=== PATIENT | female | born 1945 | race Caucasian/White ===

== ENCOUNTER 2019-07-31 20:36 | Inpatient (IN) | payer OTHER ==
[~2019-07-31] VITALS: Ht 165.1 cm; Wt 40.4 kg
--- NOTE | ~2019-07-31 | EMS ---
[address] [address] EMS Patient Care Report Name: RADHA DE OLIVEIRA Room #: REG LEDY Marks#: [id number] Admission: 07/31/19 Attend Phys: Discharge: Date of : 41 Report #: [id number] THIS REPORT FOR: //name// Report Transmitted: 07/31/2019 20:21 EMS Care Summary [facility] MED-ACT Incident [id number] @ 07/31/2019 20:11 Incident Location [address] [place] [address] Patient RADHA DE OLIVEIRA Female, 74 Years 1945 Patient Address [address] [place] [address] Patient History Behavioral/Psychiatric Disorder,Diabetes,Coronary Artery Disease (CAD), Patient Allergies No known allergies, Patient Medications Atrovent, Clopidogrel, Albuterol, Sertraline, Tylenol, Metformin, Chief Complaint Productive Cough Disposition Transported No Lights/Holden Dispatch Reason Breathing Problem Transported To [facility] Narrative [id number] arrived on scene to find the patient sitting in a chair in no apparent distress. Staff advised that the patient has had a productive cough over the [address] [address] EMS Patient Care Report Name: RADHA DE OLIVEIRA Room #: REG LEDY Marks#: [id number] Admission: 07/31/19 Attend Phys: Discharge: Date of : 41 Report #: [id number] past several days which they had imaging performed which did not show anything. They advised that the patient is now tachycardic and are sending her out for further evaluation. Patient advised that her only complaint is the cough which she has have for a few days and denied having any respiratory distress. Patient had no other complaints to EMS. Initial Vitals @20:25P: 142,R: 20,BP: 123/66,Pain: 0/10,GCS: 15,Temp: 97.4F,SpO2: 98,Revised Trauma: 12, @20:17P: 130,R: 20,BP: 118/66,Pain: 0/10,GCS: 15,SpO2: 95,Revised Trauma: 12, Assessments @20:18MENTAL:Person Oriented,Time Oriented,Place Oriented,Event Oriented,SKIN:HEENT:Head/Face: No Abnormalities,Eyes: No Abnormalities,LUNG SOUNDS:General: No Abnormalities,Left Upper: No Abnormalities,Right Upper: No Abnormalities,Left Lower: No Abnormalities,Right Lower: No Abnormalities,ABDOMEN:General: No Abnormalities,Left Upper: No Abnormalities,Right Upper: No Abnormalities,Left Lower: No Abnormalities,Right Lower: No Abnormalities,PELVIS//GI:No Abnormalities,EXTREMITIES:Left Arm: No Abnormalities,Right Arm: No Abnormalities,Left Leg: No Abnormalities,Right Leg: No Abnormalities,PULSE:NEURO:No Abnormalities, Impression Shortness of breath Procedures @20:18ALS AssessmentResponse: UnchangedSucceeded Timeline 20:10,Call Received 20:10,Psap Call 20:11,Dispatched 20:11,En Route 20:15,On Scene 20:17,At Patient 20:17,BP: 118/66 M,PULSE: 130,RR: 20 R,SPO2: 95 Ox,ETCO2: ,BG: ,PAIN: 0,GCS: 15, 20:18,ALS Assessment,Response: UnchangedSucceeded, 20:25,BP: 123/66 M,PULSE: 142,RR: 20 R,SPO2: 98 Ox,ETCO2: ,BG: ,PAIN: 0,GCS: 15, 20:27,Depart Scene 20:33,At Destination 20:49,Call Closed Disclaimer v1.1 Copyright 2019 [employer] [facility] [address] [place] [address] EMS Patient Care Report Name: RADHA DE OLIVEIRA Room #: REG [facility].#: [id number] Admission: 07/31/19 Attend Phys: Discharge: Date of : 41 Report #: [id number] This EMS Care Summary contains data elements from the applicable legal record (which may be displayed differently). It is designed to provide pertinent information for the following purposes: continuity of care, clinical quality, and state data reporting. The complete legal record is available to ED staff and administrators of the receiving hospital in [employer] Patient Tracker. All data is provided "as is."
[2019-07-31 20:38] VITALS: BP 128/68
[2019-07-31] MEDS ORDERED: GLUCERNA237 M1 PO (20:46)
[2019-07-31] MEDS ORDERED: PLAVIX 75 MG TA75 M1 PO (20:46)
[2019-07-31] MEDS ORDERED: IPRAT-ALBUT 0.5-3 ML INH (20:48)
[2019-07-31] MEDS ORDERED: METFORMIN HCL500 MG PO (20:48)
[2019-07-31] MEDS ORDERED: TYLENOL325 MG PO (20:49)
[2019-07-31] MEDS ORDERED: PROTONIX40 M2 PO (20:49)
[2019-07-31] MEDS ORDERED: ZOLOFT50 MG PO (20:49)
[2019-07-31 21:29] LABS: ABSOLUTE NEUTROPHILS 3.9 thou/uL (1.4-8.2); BASOPHILS 0.3 % (0.0-2.0); EOSINOPHILS 1.4 % (0.0-3.0); HEMATOCRIT 36.2 % (37.0-47.0); HEMOGLOBIN 11.5 gm/dL (12.0-15.0); LYMPHOCYTES 11.9 % (24.0-44.0); MCH 27.7 pg (26.0-34.0); MCHC 31.7 g/dL (28.0-37.0); MCV 87.4 fL (80.0-100.0); MONOCYTES 7.4 % (1.0-8.0); PLATELET COUNT 342 thou/uL (150-400); RBC 4.15 mil/uL (4.20-5.00); RDW 15.4 % (10.5-14.5)
[2019-07-31 21:36] LABS: ANION GAP 10 mmol/L (7-16); BUN 34 mg/dL (7-18); CALCIUM 9.5 mg/dL (8.5-10.1); CHLORIDE 98 mmol/L (98-107); CO2 30 mmol/L (21-32); CREATININE 1.3 mg/dL (0.6-1.0); GLUCOSE 125 mg/dL (74-106); POTASSIUM 4.5 mmol/L (3.5-5.1); SODIUM 138 mmol/L (136-145)
[2019-07-31 21:45] LABS: ALBUMIN 3.5 g/dL (3.4-5.0); SGOT 15 U/L (15-37); SGPT 10 U/L (30-65); TOTAL BILIRUBIN 0.2 mg/dL (<0.1-1.0); TOTAL PROTEIN 7.4 g/dL (6.4-8.2); TROPONIN-I <0.06 ng/mL (<0.06)
[2019-08-01] VITALS (7 sets, daily range): BP systolic 93–137; BP diastolic 48–78
[2019-08-01 00:41] LABS: URINE BILIRUBIN NEGATIVE (Negative); URINE BLOOD NEGATIVE (Negative); URINE CLARITY CLEAR; URINE COLOR YELLOW; URINE GLUCOSE-RANDOM* NEGATIVE (Negative); URINE KETONES NEGATIVE (Negative); URINE LEUKOCYTES-REFLEX TRACE (Negative); URINE NITRITE-REFLEX NEGATIVE (Negative); URINE PROTEIN (DIPSTICK) NEGATIVE (Negative); URINE UROBILINOGEN 0.2 E.U./dl (0.2-1.0)
--- NOTE | 2019-08-01 04:34 | NUR ---
PT. ARRIVED AT FLOOR AROUND 0200; PT. ALERT; ABLE TO AMBULATE FROM WHEELCHAIR TO BED WITH ONE PERSON ASSISTANCE; DURING ASSESSMENT PT. 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 ABLE TO USE THE BED SIDE COMMODE; INCONTINENT AT TIMES; ABLE TO REST AFTER 0300; FALL PRECAUTIONS ON PLACE; NURSE CLOSE TO ROOM; MONITORING; AROUND 0420 PT'S HR BELOW 100s; NO C/O PAIN; ASSESSMENT CHARGED; FOLLOWING POC; WILL PASS ON REPORT;
[2019-08-01 04:50] LABS: CALCIUM 8.9 mg/dL (8.5-10.1); CREATININE 1.3 mg/dL (0.6-1.0); POTASSIUM 4.2 mmol/L (3.5-5.1)
--- NOTE | 2019-08-01 15:11 | EKG ---
[address] [address] ELECTROCARDIOGRAM REPORT Name: MATTRADHA YARBROUGH Room #: 204-P ADM IN M.R.#: [id number] Admission: 08/01/19 Attend Phys: Errol Kemp MD Discharge: Date of : 41 Report #: [id number] THIS REPORT FOR: //name// [facility] ED Test Date: 2019-07-31 Test Time: 21:37:24 Pat Name: RADHA DE OLIVEIRA Department: Room: 204 Gender: F Religious Healer: DENISSE : 1945 Requested By: Tahmina Cuello Order Number: [id number] MD: Micheal Jarvis Measurements Intervals Butler Rate: 144 P: 15 NH: 121 QRS: 17 QRSD: 99 T: 181 QT: 289 QTc: 448 Interpretive Statements Sinus tachycardia Nonspecific T abnormalities, lateral leads No previous ECG available for comparison Electronically Signed On 08-01-2019 15:11:41 CDT by Micheal Jarvis [email or web address] <ELECTRONICALLY SIGNED> By: Micheal Jarvis MD 08/01/19 1511 36 Micheal Jarvis MD /SHILA
--- NOTE | 2019-08-01 16:49 | NUR ---
ASSESSMENT CHARTED. PT ALERT AND ORIENTED TO SELF. NEW ORDERS NOTED. FALL PRECAUTION IN PLACE. CHECKED FREQUENTLY AND NEEDS MET. FAMILY UPDATED ON PT'S PROGRESS. WILL CONTINUE TO MONITOR.
--- NOTE | 2019-08-01 16:58 | NUR ---
Case opened to follow for dc planning. Pt's DIL/dpoa Rut here earlier today. The pt is from [facility] memory care at [facility]. She is here with recurrent aspiration pneumonia. Dtr in law reports she is up with assist and a rwalker. They provide med mngt, meals, adl support and supervision. Dc plan is to return to the memory care unit at pr. Their clinical mngr will come by Sunday to assess her for readmission. Update called to [place] [facility]. She has confirmed onsite with their clinical manager hris. Will ask for therapy evals.
--- NOTE | 2019-08-01 17:14 | NUR ---
PT RESIDES AT [facility] FAXED H/P TO FACILITY AND RECEIVED CONFIRMATION. DCP TO FOLLOW.
[2019-08-02 04:26] VITALS: BP 144/64
[2019-08-02 04:46] LABS: HEMATOCRIT 32.6 % (37.0-47.0); HEMOGLOBIN 10.7 gm/dL (12.0-15.0); MCH 28.3 pg (26.0-34.0); MCHC 32.7 g/dL (28.0-37.0); MCV 86.5 fL (80.0-100.0); RBC 3.77 mil/uL (4.20-5.00); RDW 15.6 % (10.5-14.5); WBC 5.6 thou/uL (4.0-11.0)
--- NOTE | 2019-08-02 05:04 | NUR ---
ASSESSMENT DOCUMENTED.PT BEEN RESTING IN NO ACUTE DISTRESS.A/OX1,FORGETFUL,FOLLOWS SIMPLE COMMANDS.VSS.PT BEEN SLEEPING MOST OF THE NOC.TYLENOL WAS GIVEN FOR HEADACHE WITH COMPLETE RELIEF.IV ANTIBIOTICS INFUSED PER ORDERS,TOLERATED.UP W/ASSIST TO BSC.POC IS TO CONT TO WITH CURRENT TX.
[2019-08-02 07:30] VITALS: BP 140/82
[2019-08-02 11:30] VITALS: BP 95/54
[2019-08-02 16:00] VITALS: BP 129/66
--- NOTE | 2019-08-02 16:09 | NUR ---
ASSUMED CARE OF PATIENT AT 0700. PATIENT IS ALERT TO SELF. PATIENT IS CONFUSED AT TIMES AND RESTLESS. WE TOOK MULTIPLE WALKS AROUND THE UNIT AND SHE SAT WITH THE SPA MANAGER FOR A FEW HOURS IN THE AFTERNOON TO PREVENT HER FROM "TRYING TO GET UP" ON HER OWN. HER BLOOD SUGAR IS BEING CHECK AC&HS AND COVERED WITH INSULIN. ASSESSMENTS CHARTED. PATIENT WORKED WITH PT AND OT. PATIENT HAS AN INTERMITTENT NONPRODUCTIVE COUGH. PATIENT TO CONTINUE WITH POC.
[2019-08-02 20:02] VITALS: BP 149/70
--- NOTE | 2019-08-02 22:26 | NUR ---
ASSUMED CARE FROM DAY SHIFT PT CONFUSED TO SURROUNDING AND SITUATION, PT PULLED 2 IV S OUT WITHIN 2 HOURS , ARMS WERE WRAP WEL TO CONCEL BUT PT MANAGE TO PULLOUT AND ATEMPT TO GET OUT OF BED, LYSSA CHECK MADE. ANGLESMITH CALLED ORDER RECIEVED FOR MITTENS AND PO IMELDA , DAUGHTER TENISHA CALLED AND NOTIFED. PT EDUCATED ON WHY THE MITTENS APPLIED , PT VERBALIZED UNDERTSANDING BUT CONTINUE TO PULL AT MITTTENS TO REMOVE.WILL CONTINUE TO MONITOR CLOSELY AND WILL REPORT CHANGES OR ABNORMAL FINDINSG.
[2019-08-03] VITALS (7 sets, daily range): BP systolic 105–154; BP diastolic 42–70
--- NOTE | 2019-08-03 05:24 | NUR ---
PT AWAKEN FREQ UP TO BSC VOIDING WITH SOFT STOOL MITTENS REMAINS ON , PT CALM AND RESTING IN BETWEEN HOURLY ROUNDS.
--- NOTE | 2019-08-03 17:33 | NUR ---
ASSUMMED PT CARE AT APPROXIMATELY 0700. PT IS AWAKE AND ORIENTED TO HERSELF. PT DOES HAVE HX OF DEMENTIA. ASSESSMENT CHARTED. FALL PRECAUTIONS IN PLACE. VITAL SIGNS STABLE. BLOOD SUGARS STABLE. PT AMBULATES STEADY WITH ASSIST X1. PT ABLE TO MOVE HERSELF AROUND IN BED. PT DENIES HAVING SOB. PT DENIED HAVING CHEST PAIN. PT STATED SHE DID HAVE A HEADACHE. PT RECEIVED ANALGESICS. PT STATED ANALGESICS HELPED RELEIVE PAIN. REORIENTED PT FREQUENTLY. PT UP TO CHAIR THROUGHOUT SHIFT. PT AND PT'S FAMILY EDUCATED ABOUT POC. PT AND PT'S FAMILY STATED UNDERSTANDING AND DENIED HAVING FURTHER QUESTIONS. ASSESSING AND MONITORING MITT RESTRAINTS Q2 HRS. USING DISTRACTIONAL ACTIVITIES. PT DENIED HAVING FURTHER CONCERNS, PT COMFORTABLE IN CHAIR EATING DINNER.
[2019-08-04 03:54] VITALS: BP 143/68
--- NOTE | 2019-08-04 04:42 | NUR ---
ASSUMED PT CARE AT 1900. PT ORIENTED ONLY TO SELF, VITAL SIGNS STABLE, ASSESSMENT CHARTED. TYLENOL GIVEN FOR HEADACHE. RESTRAINTS OFF ALL NIGHT, PT LESS IMPULSIVE. UNABLE TO OBTAIN SPUTUM SAMPLE PT HAS NON-PRODUCTIVE COUGH. PT RESTED WELL THROUGH THE NIGHT. PROGRESSING TOWARD PLAN OF CARE. WILL CONTINUE TO MONITOR.
[2019-08-04 05:55] LABS: CALCIUM 9.7 mg/dL (8.5-10.1); CREATININE 0.9 mg/dL (0.6-1.0); POTASSIUM 3.2 mmol/L (3.5-5.1)
[2019-08-04 08:00] VITALS: BP 154/70
[2019-08-04] MEDS ORDERED: AUGMENTIN 500-1 EACH PO (10:40)
[2019-08-04 11:30] VITALS: BP 130/51
[2019-08-04 12:21] VITALS: BP 154/70
--- NOTE | 2019-08-04 13:33 | NUR ---
ASSUMED PT CARE AT APPROXIMATELY 0700. PT AWAKE AND ALERT TO HERSELF. PT WITH HX OF DEMENTIA. ASSESSMENT CHARTED. PT DENIED HAVING CHEST PAIN. PT DENIED HAVING SOB. FALL PRECAUTIONS IN PLACE. PT DISCHARGING HOME TO [facility]. NATURAL RESOURCE MANAGER AT [facility] AND MANAGER [employer] AT [facility] SETTING UP HOME HEALTH. PT TELE DC. PT IV DC. PT DISCHARGING WITH [facility]. REPORT CALLED AND GIVEN TO RN AT [facility] IN [place]. PACKET WITH H&P AND FACESHEET GIVEN TO [facility]POA. HOSPITAL TRANSPORT CALLED AND TAKING PT OFF UNIT. PT DENIED HAVING FURTHER CONCERNS. VITAL SIGNS STABLE. BLOOD SUGARS STABLE.
--- NOTE | 2019-08-04 13:44 | NUR ---
PT DISCHARGING TODAY TO [facility] TO TRANSPORT FAXED DC ORDERS/SUMMARY TO FACILITY LEFT MSG WITH GARIMA IN ADM THAT PT WILL NEED HH. UNIT NOTIFIED AND CHART COPY PER US. RN TO CALL REPORT TO [phone]
== END 2019-08-04 13:31 | DRG 177 ==
LOC: ER 20:36 → 2N 08-01 01:14 → EROBS 08-01 01:14 → 2N 08-01 01:51
PROVIDERS: Nurse Practitioner Family; Physician Assistant; ADMIT Hospitalist
DX: J69.0 Pneumonitis due to inhalation of food and vomit (principal); E43 Unspecified severe protein-calorie malnutrition; N17.9 Acute kidney failure, unspecified; Z68.1 Body mass index [BMI] 19.9 or less, adult; K21.9 Gastro-esophageal reflux disease without esophagitis; F03.90 Unspecified dementia, unspecified severity, without behavioral disturbance, psychotic disturbance, mood disturbance, and anxiety; F32.9 Major depressive disorder, single episode, unspecified; R00.0 Tachycardia, unspecified; I25.10 Atherosclerotic heart disease of native coronary artery without angina pectoris; R91.8 Other nonspecific abnormal finding of lung field; D64.9 Anemia, unspecified; N18.3 Chronic kidney disease, stage 3 (moderate); E11.22 Type 2 diabetes mellitus with diabetic chronic kidney disease; J43.2 Centrilobular emphysema; E83.42 Hypomagnesemia; Z79.899 Other long term (current) drug therapy; Z79.84 Long term (current) use of oral hypoglycemic drugs; Z88.7 Allergy status to serum and vaccine; Z87.891 Personal history of nicotine dependence
CPT/HCPCS: 10081